=== PATIENT | female | born 1950 | race Hispanic/Latino ===

== ENCOUNTER 2019-01-13 13:27 | Outpatient (CLI) | payer MEDICARE, BC ==
--- NOTE | 2019-01-13 15:45 | MRI ---
MRI CERVICAL SPINE WITHOUT CONTRAST: HISTORY: Cervical disk displacement at C6-C7. COMPARISON: None. TECHNIQUE: Cervical spine MRI is performed without intravenous Gadolinium administration. Multisequential, mult iplanar imaging is performed. FINDINGS: There is limited evaluation of the cervical spine, secondary to metallic susceptibility artifact from anterior and posterior fusion hardware from C4 through C7. With regard to the upper cervical spine and the visualized upper thoracic spine, there is appropriate T1 marrow signal intensity. No signifi cant STIR hyperintensity to suggest vertebral body edema or ligamentous injury. The visualized brain parenchyma, cervicomedullary junction, cervical cord, and upper thoracic cord stark ve normal size and signal intensity. C2-C3: No significant central canal stenosis. The foramina are patent. C3-C4: Limited evaluation due to metallic susceptibility artifact. Grossly, no evidence of signific ant central canal stenosis or foraminal narrowing. C4-C5: Central osteophyte without high-grade central canal stenosis. No evidence of significant for aminal narrowing. C5-C6: Broad-based osteophyte ridge with deformity of the ventral cord and thecal sac. Moderate madison tral canal stenosis. The right neural foramen appears to be mildly narrowed. The left neural forame n is moderately narrowed due to uncovertebral hypertrophy. C6-C7: Small central osteophyte ridge without significant central canal stenosis. The foramina are patent bilaterally. C7-T1: No significant central canal stenosis or neural foraminal narrowing. IMPRESSION: 1. Anterior fusion from C4 through C7. Posterior fusion also from C4 through C7. 2. Varying degrees of central canal stenosis and foraminal narrowing, as detailed above. 3. The greatest degree of central canal stenosis appears to be at the C5-C6 disk space level. POS: OFF
== END 2019-01-13 13:28 | disposition home or self-care (01) ==
LOC: SCSMRI 13:27
PROVIDERS: ATTEND Psychiatry & Neurology Neurology
DX: M50.223 Other cervical disc displacement at C6-C7 level (principal); M48.02 Spinal stenosis, cervical region; Z98.1 Arthrodesis status
CPT/HCPCS: 72141

== ENCOUNTER 2019-02-20 06:43 | Day surgery (SDC) | payer MEDICARE, BC ==
[2019-02-19 14:55] VITALS: BMI 30.9
--- NOTE | 2019-02-20 09:42 | CT ---
Exam: POST MYELOGRAM CERVICAL SPINE CT: HISTORY:Cervical radiculopathy. Cervical spondylosis. COMPARISON: None CORRELATION: Cervical spine MRI 01/13/2019. Cervical spine CT is performed in the axial length. Three-dimensional reformatted images are submitte d FINDINGS: No craniocervical dissociation. Appropriate alignment of the lateral masses of C1 and C2. Intact odon toid process. Anterior and posterior fusion changes at C4, C5, C6, and C7. No perihardware lucency. Disc prosthesis at C4-C5, C5-C6, and C6-C7. Straightening of normal cervical lordosis may be due to f usion. Soft tissue neck structures, upper mediastinum and lung apices are unremarkable. Mass effect upon the posterior larynx secondary to medial deviation of both internal carotid arteries C2-C3: No significant central canal stenosis. Bilaterally, neural foramina are patent. Minimal right uncal vertebral hypertrophy C3-C4: No significant central canal stenosis. Bilaterally, neural foramina are patent. C4-C5:Central/left paracentral osteophyte ridge. Mild narrowing of the left lateral recess. Right jackie ral foramen is patent. Mild left foraminal narrowing C5-C6: Broad-based osteophyte ridge with a central, right paracentral component. There is significant mass effect upon the right hemicord. Mild to moderate central canal stenosis. Mild right and moderate left foraminal narrowing due to uncal vertebral hypertrophy. C6-C7:Central osteophyte ridge does cause mass effect upon the ventral cord. Mild central canal steno sis. Right neural foramen is patent. Mild left foraminal narrowing due to uncal vertebral hypertrophy. C7-T1: No significant central canal stenosis or neural foraminal narrowing. IMPRESSION: 1.Anterior and posterior fusion from C4 through C7 without perihardware lucency. 2. Mass effect upon the spinal cord at C4-C5, C5-C6, and C6-C7 due to prominent osteophyte ridges. Mi ld to moderate central canal stenosis at C5-C6. Transcribed Date/Time: 02/20/2019 10:32 AM
--- NOTE | 2019-02-20 10:50 | RAD ---
CERVICAL MYELOGRAM: Date: 02/20/19 HISTORY: Cervical spondylosis. Cervical radiculopathy. EXPOSURE: 1.1 minutes. 670.2 mGy*M^2. FINDINGS: Two view publications inspector lumbar spine radiograph demonstrates five lumbar-type vertebral bodies. There is fusio n change at L4 and L5. Moderate degenerative disc disease at L2-L3 with loss of disc space height and osteophyte formation is noted. Two views of cervical spine demonstrate anterior fusion and posterior fusion changes at C4, C5, C6, a nd C7. No perihardware lucency. Disc spacer at C4-C5, C5-C6, and C6-C7. No malalignment on the AP projection. Successful lumbar puncture for intrathecal contrast administration. A total of 10 mL of Isovue-M 300 contrast was administered at the L2-L3 level. TECHNIQUE: Consent obtained to perform a fluoroscopic guided lumbar puncture for cervical myelogram. The patient 's back was evaluated. The L3-L4 level was deemed appropriate. Skin was prepped and draped in the tigre rile fashion. 1% lidocaine, buffered with sodium bicarbonate, was used for local anesthesia. Under fl uoroscopic guidance, needle was advanced into the expected region of the central spinal canal/thecal sac. There was no evidence of flow of CSF. Therefore, the needle was repositioned to the L2-L3 level. Clear CSF was obtained. A total of 10 mL of contrast was administered. Patient tolerated the procedu re well. No immediate or postprocedure complications. IMPRESSION: Successful lumbar puncture for cervical myelogram. POS: OFF
[2019-02-20] MEDS ORDERED: Iopamidol-M 300 61% 15 ML VIAL ONE (10:53)
== END 2019-02-20 09:35 | disposition home or self-care (01) ==
LOC: RAD 06:43
PROVIDERS: ATTEND Neurological Surgery
PROC: B01B1ZZ Fluoroscopy of Spinal Cord using Low Osmolar Contrast (ICD-10-PCS; principal; 2019-02-20)
DX: M47.22 Other spondylosis with radiculopathy, cervical region (principal); M48.02 Spinal stenosis, cervical region; I10 Essential (primary) hypertension; K21.9 Gastro-esophageal reflux disease without esophagitis; E11.9 Type 2 diabetes mellitus without complications; Z85.3 Personal history of malignant neoplasm of breast; Z79.1 Long term (current) use of non-steroidal anti-inflammatories (NSAID); Z79.811 Long term (current) use of aromatase inhibitors; Z79.82 Long term (current) use of aspirin; Z79.84 Long term (current) use of oral hypoglycemic drugs; Z79.899 Other long term (current) drug therapy; Z88.2 Allergy status to sulfonamides; Z88.5 Allergy status to narcotic agent; Z88.8 Allergy status to other drugs, medicaments and biological substances; Z91.018 Allergy to other foods; Z98.1 Arthrodesis status
CPT/HCPCS: 62302; 72126; Q9967

== ENCOUNTER 2024-07-08 01:03 | Emergency (ER) | payer MEDICARE ==
[2024-07-08] MEDS ORDERED: Acetaminophen 500 MG TAB ONE (02:34)
== END 2024-07-08 03:50 | disposition home or self-care (01) ==
LOC: ERS 01:03
DX: S92.351A Displaced fracture of fifth metatarsal bone, right foot, initial encounter for closed fracture (principal); S92.501A Displaced unspecified fracture of right lesser toe(s), initial encounter for closed fracture; E11.9 Type 2 diabetes mellitus without complications; I10 Essential (primary) hypertension; W20.8XXA Other cause of strike by thrown, projected or falling object, initial encounter; Y93.G3 Activity, cooking and baking; Z79.4 Long term (current) use of insulin; Z55.0 Illiteracy and low-level literacy
CPT/HCPCS: 99283